=== PATIENT | male | born 1975 | race Hispanic/Latino ===

== ENCOUNTER 2020-09-21 17:22 | Emergency (ER) | payer OTHER ==
[~2020-09-21] VITALS: Ht 167.6 cm; Wt 95.3 kg
[2020-09-21] MEDS ORDERED: TYLENOL # 31 EA PO (17:29)
[2020-09-21] MEDS ORDERED: ZOFRAN4 MG PO (17:29)
[2020-09-21] MEDS ORDERED: DIPHENHYDRAMINE25 MG PO (17:29)
[2020-09-21] MEDS ORDERED: AUGMENTIN 875-1 EACH PO (17:29)
[2020-09-21] MEDS ORDERED: CEFTRIAXONE SOD 1 GM VIAL IM ONE (17:45)
== END 2020-09-21 18:06 | disposition home or self-care (01) ==
LOC: FSED 17:38
DX: K04.7 Periapical abscess without sinus (principal); K02.9 Dental caries, unspecified
CPT/HCPCS: 96372; 99282; J0696

== ENCOUNTER 2024-08-02 19:42 | Emergency (ER) | payer BC, OTHER ==
[~2024-08-02] VITALS: Ht 167.6 cm; Wt 95.3 kg
[~2024-08-02 19:42] MED LIST: AUGMENTIN 875-1 EACH PO; DIPHENHYDRAMINE25 MG PO; TYLENOL # 31 EA PO; ZOFRAN4 MG PO
[2024-08-02] MEDS: FAMOTIDINE 20 MG/2 ML VIAL IV STA (21:19)
[2024-08-02] MEDS: KETOROLAC TROMETHAMINE 30 MG/ML VIAL IV STA (21:20)
[2024-08-02] MEDS: PREDNISONE 20 MG TAB PO ONE (21:21)
[2024-08-02] MEDS: ASPIRIN 325 MG TAB PO ONE (21:21)
[2024-08-02] MEDS ORDERED: KETOROLAC TROME10 MG PO (23:01)
[2024-08-02] MEDS ORDERED: METHOCARBAMOL750 MG PO (23:02)
[2024-08-02 23:13] VITALS: PULSE 71; RESP 18; TEMP 98.1; O2SAT 96
== END 2024-08-02 23:10 | disposition home or self-care (01) ==
LOC: FSED 19:49
DX: R06.02 Shortness of breath (principal); R07.89 Other chest pain; R51.9 Headache, unspecified; F17.210 Nicotine dependence, cigarettes, uncomplicated
CPT/HCPCS: 71046; 80053; 83880; 84484; 85025; 85379; 85610; 99284; J1885; J7512